=== PATIENT | male | born 1940 | race Caucasian/White ===

== ENCOUNTER 2019-10-19 13:24 | Emergency (ER) | payer MEDICARE, BC ==
[2019-10-19 13:42] VITALS: BP 138/71; PULSE 60
[2019-10-19] MEDS ORDERED: Lactated Ringers 500 ML IV ONE (14:05)
--- NOTE | 2019-10-19 14:10 | EDM.PDOC ---
ED HPI GENERAL MEDICAL PROBLEM - General Chief Complaint: General Stated Complaint: TIRED/DIZZY Time Seen by Provider: 10/19/19 13:50 Source of Information: Reports: Patient History Limitations: Reports: No Limitations - History of Present Illness INITIAL COMMENTS - FREE TEXT/NARRATIVE: Tony is an 79 yo male who presents ambulatory to the ED via private vehicle. He reports that starting this morning he just wasn't feeling well. Reports he was outside and started to feel weak/tired/dizzy. He describes dizziness as lightheaded. Denies any head injury or LOC. He denies any fever, chills, N/V/D, urinary symptoms, chest pain, cough, shortness of breath. Reports he woke up and just felt like he needed to go back to bed. Does not offer any additional complaints. Does have cardiac history with last NM approximately 7 years ago. Onset: Today, Gradual Location: Reports: Generalized Associated Symptoms: Reports: Malaise, Weakness. Denies: Confusion, Chest Pain , Cough, cough w sputum, Diaphoresis, Fever/Chills, Headaches, Loss of Appetite , Nausea/Vomiting, Rash, Seizure, Shortness of Breath, Syncope - Related Data Allergies Allergy/AdvReac Type Severity Reaction Status Date / Time No Known Allergies Allergy Verified 10/19/19 13:30 Home Meds: Home Meds Aspirin [Ecotrin] 81 mg PO DAILY 09/29/14 [History] allopurinoL [Allopurinol] 100 mg PO DAILY 09/29/14 [History] carvediloL [Carvedilol] 1 tab PO BID 09/29/14 [History] Cholecalciferol (Vitamin D3) [Vitamin D3] 5,000 unit PO DAILY 05/26/17 [History] Multivitamin [Multivitamins] 1 tab PO DAILY 05/26/17 [History] Potassium Chloride 10 meq PO BID 05/26/17 [History] Rosuvastatin [Crestor] 10 mg PO DAILY 05/26/17 [History] Omeprazole 20 mg PO DAILY 10/19/19 [History] Tamsulosin [Tamsulosin 24 Hr] 0.4 mg PO DAILY 10/19/19 [History] Valsartan 40 mg PO DAILY 10/19/19 [History] hydroCHLOROthiazide [Hydrochlorothiazide] 25 mg PO DAILY 10/19/19 [History] Past Medical History HEENT History: Reports: Cataract Cardiovascular History: Reports: Angina, Hypertension, Pacemaker Gastrointestinal History: Reports: GERD Genitourinary History: Reports: BPH - Past Surgical History HEENT Surgical History: Reports: Cataract Surgery, Tonsillectomy Cardiovascular Surgical History: Reports: Carotid Stents GI Surgical History: Reports: Appendectomy, Cholecystectomy, Hernia, Abdominal Social & Family History - Family History Family Medical History: Noncontributory - Tobacco Use Smoking Status *Q: Never Smoker Second Hand Smoke Exposure: No - Caffeine Use Caffeine Use: Reports: None - Recreational Drug Use Recreational Drug Use: No ED ROS GENERAL - Review of Systems Review Of Systems: Comprehensive ROS is negative, except as noted in HPI. ED EXAM, GENERAL - Physical Exam Exam: See Below Exam Limited By: No Limitations General Appearance: Alert, WD/WN, No Apparent Distress Eye Exam: Bilateral Eye: EOMI, Normal Fundi, Normal Inspection, PERRL Ears: Normal External Exam, Normal Canal, Hearing Grossly Normal, Normal TMs Nose: Normal Inspection, Normal Mucosa, No Blood Throat/Mouth: Normal Inspection, Normal Lips, Normal Teeth, Normal Gums, Normal Oropharynx, Normal Voice, No Airway Compromise Head: Atraumatic, Normocephalic Neck: Normal Inspection, Supple, Non-Tender, Full Range of Motion Respiratory/Chest: No Respiratory Distress, Lungs Clear, Normal Breath Sounds, No Accessory Muscle Use, Chest Non-Tender Cardiovascular: Normal Peripheral Pulses, Regular Rate, Rhythm, No Edema, No Gallop, No JVD, No Murmur, No Rub GI/Abdominal: Normal Bowel Sounds, Soft, Non-Tender, No Organomegaly, No Distention, No Abnormal Bruit, No Mass Back Exam: Normal Inspection, Full Range of Motion, NT Extremities: Normal Inspection, Normal Range of Motion, Non-Tender, Normal Capillary Refill, No Pedal Edema Neurological: Alert, Oriented, CN II-XII Intact, Normal Cognition, Normal Gait, Normal Reflexes, No Motor/Sensory Deficits Psychiatric: Normal Affect, Normal Mood Skin Exam: Warm, Dry, Intact, Normal Color, No Rash Lymphatic: No Adenopathy Course - Vital Signs Last Recorded V/S: Last Vital Signs Temp 97.1 F 10/19/19 13:38 Pulse 60 10/19/19 13:38 Resp 16 10/19/19 13:38 BP 138/71 10/19/19 13:38 Pulse Ox 97 10/19/19 13:38 - Orders/Labs/Meds Labs: Laboratory Tests 10/19/19 10/19/19 Range/Units 14:01 14:01 WBC 8.3 (5.0-10.0) 10^3/uL RBC 4.17 L (4.50-6.00) 10^6/uL Hgb 13.2 L (14.0-18.0) g/dL Hct 37.3 L (40.0-54.0) % MCV 89.4 (82.0-94.0) fL MCH 31.7 (27.0-32.0) pg MCHC 35.4 (33.0-38.0) g/dL RDW Coeff of Stan 11.3 (11.0-15.0) % Plt Count 224 (150-400) 10^3/uL Neut % (Auto) 73.3 (35-85) % Lymph % (Auto) 13.8 (10-55) % Quay % (Auto) 11.1 (0-16) % Eos % (Auto) 1.4 (0-5) % Baso % (Auto) 0.4 (0-3) % Neut # (Auto) 6.09 (1.80-7.00) 10^3/uL Lymph # (Auto) 1.15 (1.00-4.80) 10^3/uL Quay # (Auto) 0.92 H (0.00-0.80) 10^3/uL Eos # (Auto) 0.12 (0.00-0.45) 10^3/uL Baso # (Auto) 0.03 10^3/uL Sodium 134 L (136-145) mEq/L Potassium 3.6 (3.5-5.0) mEq/L Chloride 97 L (98-106) mEq/L Carbon Dioxide 29 (21-32) mmol/L BUN 31 H (7-18) mg/dL Creatinine 1.3 (0.7-1.3) mg/dL Est Cr Clr Drug Dosing 41.67 mL/min Estimated GFR (MDRD) 53 L (>=60) mL/min Glucose 106 H (75-99) mg/dL Calcium 8.8 (8.4-10.1) mg/dL Total Bilirubin 0.8 (0.0-1.0) mg/dL AST 28 (15-37) U/L ALT 21 (12-78) U/L Alkaline Phosphatase 56 (46-116) U/L Lactate Dehydrogenase 145 (100-190) U/L Creatine Kinase 320 H (35-232) U/L Troponin I < 0.017 (0.00-0.06) ng/mL C-Reactive Protein 0.2 (0.2-0.8) mg/dL Total Protein 7.0 (6.4-8.2) g/dL Albumin 3.7 (3.4-5.0) g/dL Meds: Medications Discontinued Medications Generic Name Dose Route Start Last Admin Trade Name Freq PRN Reason Stop Dose Admin Lactated Ringer's 500 mls @ 500 mls/hr 10/19/19 14:05 10/19/19 14:12 Ringers, Lactated IV 10/19/19 15:04 500 mls/hr .BOLUS ONE Administration Sodium Chloride 500 mls @ 999 mls/hr 10/19/19 14:15 Normal Saline IV ASDIRECTED RAMON Departure - Departure Time of Disposition: 14:56 Disposition: Home, Self-Care 01 Condition: Fair Clinical Impression: Elevated creatine kinase level, Mild dehydration Heat exhaustion Qualifiers: Encounter type: initial encounter Qualified Code(s): T67.5XXA - Heat exhaustion , unspecified, initial encounter - Discharge Information *PRESCRIPTION DRUG MONITORING PROGRAM REVIEWED*: Not Applicable *COPY OF PRESCRIPTION DRUG MONITORING REPORT IN PATIENT LARRY: Not Applicable Instructions: Dehydration, Adult, [id number] Referrals: Jad Warner PA-C [Primary Care Provider] - Forms: ED Department Discharge Additional Instructions: - Try to drink 64 oz water daily - Rest and take it easy until feeling better - Avoid exerting self while in heat - Follow up with PCP for recheck if symptoms worsen or do not seem to be improving - Return to ED for emergent needs Sepsis Event Note - Evaluation Sepsis Screening Result: No Definite Risk - Focused Exam Date Exam was Performed: 10/20/19 Time Exam was Performed: 13:30 - Problem List & Annotations (1) Heat exhaustion SNOMED Code(s): 91810442 Code(s): T67.5XXA - HEAT EXHAUSTION, UNSPECIFIED, INITIAL ENCOUNTER Status : Acute Qualifiers: Encounter type: initial encounter Qualified Code(s): T67.5XXA - Heat exhaustion, unspecified, initial encounter (2) Mild dehydration SNOMED Code(s): 1031221947304 Code(s): E86.0 - DEHYDRATION Status: Acute (3) Elevated creatine kinase level SNOMED Code(s): 014834410 Code(s): R74.8 - ABNORMAL LEVELS OF OTHER SERUM ENZYMES Status: Acute - Assessment/Plan Assessment:: Heat Exhaustion Elevated CK level Mild Dehydration Plan: Patient presented to ED with fatigue and dizziness. Reportedly had been working outside yesterday in the heat. Reports he got up this morning and realized he was fatigued and dizzy. Lab workup stable. CK level elevated to 320. Patient given 500 mL fluid bolus. Did report some improvement in symptoms. Educated patient on recommended daily fluid intake. He is advised to avoid over exertion while in the heat. Is advised to rest and take it easy until feeling better. Is advised to follow up with his PCP Rafael Warner if symptoms worsen or do not seem to be improving. Patient discharged from facility in satisfactory condition.
[2019-10-19] MEDS ORDERED: Sodium Chloride 0.9% 500 ML IV SCH (14:15)
[2019-10-19 14:22] LABS: CHLORIDE,CL 97 mEq/L (98-106); SODIUM,NA 134 mEq/L (136-145)
== END 2019-10-19 15:15 | disposition home or self-care (01) ==
LOC: CC.ED 13:24
DX: T67.5XXA Heat exhaustion, unspecified, initial encounter (principal); E86.0 Dehydration; R74.8 Abnormal levels of other serum enzymes; I10 Essential (primary) hypertension; K21.9 Gastro-esophageal reflux disease without esophagitis; N40.0 Benign prostatic hyperplasia without lower urinary tract symptoms; Z95.0 Presence of cardiac pacemaker; Z79.82 Long term (current) use of aspirin; Z79.899 Other long term (current) drug therapy
CPT/HCPCS: 36415; 80053; 82550; 83615; 84484; 85025; 86140; 93005; 96360; 99284; 99284-25; J7120